=== PATIENT | male | born 1990 | race American Indian/Alaskan Native ===

== ENCOUNTER 2021-03-26 23:37 | Emergency (ER) | payer OTHER ==
[2021-03-27 00:33] VITALS: BP 134/94
[2021-03-27] MEDS ORDERED: LIDOCAINE (1%) 10 MG/1 ML VIAL 20 ML MDV INFILTRATI ONE (00:37)
[2021-03-27] MEDS ORDERED: IBUPROFEN 800 MG TAB PO ONE (00:37)
--- NOTE | 2021-03-27 01:12 | Emergency Department Report ---
ED General Adult HPI - General Chief complaint: Skin/Abscess/Foreign Body Stated complaint: PAINFUL BILATERAL FACIAL SWELLING Source: patient Mode of arrival: Ambulatory Limitations: No Limitations - History of Present Illness Initial comments: Patient is a 30-year-old -British male with no past medical history presents to the ED with complaint of acute onset persistent severe painful swollen rashes on bilateral preauricular areas for the last 4 days. Patient states that the swelling and pain have especially worsened in the last 24 hours. Patient also states that he has been trying to drain this rashes himself about 3 days ago when they started getting worse. Patient denies fever, chills, headache, nausea and vomiting, dizziness, syncope, neck pain, back pain, traumatic injury, chest pain or shortness of breath. MD Complaint: bilateral facial swollen painful rashes -: Sudden, days(s) (4) Location: face Radiation: non-radiation Severity scale (0 -10): 5 Quality: aching, sharp Consistency: constant Improves with: none Worsens with: none Associated Symptoms: denies other symptoms, rash (Swollen, painful maculopapular rashes on bilateral preauricular areas). denies: confusion, chest pain, cough, diaphoresis, fever/chills, headaches, loss of appetite, malaise, nausea/vomiting, seizure, shortness of breath, syncope, weakness Treatments Prior to Arrival: none - Related Data Previous Rx's Medication Instructions Recorded Last Taken Type Ibuprofen [Motrin] 800 mg PO Q8HR PRN #30 tablet 03/27/21 Unknown Rx Sulfamethoxazole/Trimethoprim 1 each PO Q12H #20 tablet 03/27/21 Unknown Rx [Bactrim DS TAB] Allergies Allergy/AdvReac Type Severity Reaction Status Date / Time No Known Allergies Allergy Unverified 03/27/21 00:34 ED Review of Systems ROS: Stated complaint: PAINFUL BILATERAL FACIAL SWELLING Other details as noted in HPI Constitutional: denies: chills, fever Eyes: denies: eye pain, eye discharge, vision change ENT: other (Swollen, painful bilateral preauricular rashes). denies: ear pain, throat pain Respiratory: denies: cough, shortness of breath, wheezing Cardiovascular: denies: chest pain, palpitations Endocrine: no symptoms reported Gastrointestinal: denies: abdominal pain, nausea, diarrhea Genitourinary: denies: urgency, dysuria Musculoskeletal: denies: back pain, joint swelling, arthralgia Skin: rash (Swollen, painful bilateral preauricular rashes). denies: lesions Neurological: denies: headache, weakness, paresthesias Psychiatric: denies: anxiety, depression Hematological/Lymphatic: denies: easy bleeding, easy bruising ED Past Medical Hx - Medications Home Medications: Home Medications Medication Instructions Recorded Confirmed Last Taken Type Ibuprofen [Motrin] 800 mg PO Q8HR PRN #30 tablet 03/27/21 Unknown Rx Sulfamethoxazole/Trimethoprim 1 each PO Q12H #20 tablet 03/27/21 Unknown Rx [Bactrim DS TAB] ED Physical Exam - General Limitations: No Limitations General appearance: alert, in no apparent distress - Head Head exam: Present: atraumatic, normocephalic, normal inspection - Eye Eye exam: Present: normal appearance, PERRL, EOMI Pupils: Present: normal accommodation - ENT ENT exam: Present: normal orophraynx, mucous membranes moist, other (Palpable fluctuant severely tender bilateral maculopapular rashes on bilateral preauricular areas) - Neck Neck exam: Present: normal inspection, full ROM - Respiratory Respiratory exam: Present: normal lung sounds bilaterally. Absent: respiratory distress, wheezes, rales, rhonchi, chest wall tenderness, accessory muscle use, decreased breath sounds, prolonged expiratory - Cardiovascular Cardiovascular Exam: Present: regular rate, normal rhythm, normal heart sounds. Absent: systolic murmur, diastolic murmur, rubs, gallop - GI/Abdominal GI/Abdominal exam: Present: soft, normal bowel sounds. Absent: tenderness, guarding, hyperactive bowel sounds, hypoactive bowel sounds, organomegaly - Extremities Exam Extremities exam: Present: normal inspection, full ROM, normal capillary refill - Back Exam Back exam: Present: normal inspection, full ROM. Absent: tenderness, CVA tenderness (R), CVA tenderness (L), muscle spasm, paraspinal tenderness, vertebral tenderness - Neurological Exam Neurological exam: Present: alert, oriented X3, CN II-XII intact, normal gait, reflexes normal - Psychiatric Psychiatric exam: Present: normal affect, normal mood - Skin Skin exam: Present: warm, dry, intact, normal color, rash (Swollen, fluctuant, severely tender maculopapular rashes on bilateral preauricular areas of the face) ED Course Vital Signs 03/27/21 00:08 Temperature 98.6 F Pulse Rate 89 Respiratory 18 Rate Blood Pressure 134/94 O2 Sat by Pulse 95 Oximetry - I & D Right Ear Type of Procedure: Simple Site: Right preauricular area Blade Size: 11 I & D Procedure: betadine prep, sterile drapes applied, sterile dressing applied, gauze wick placed Progress: The area was cleaned extensively with Betadine solution and normal saline. Local anesthetic lidocaine 1% solution was injected around the abscess and when anesthesia was fully achieved, the area was incised and thick purulent discharge mixed with blood drained from the wound. The wound was then extensively cleaned with normal saline and dressed appropriately. Patient tolerated procedure well. Left Face Type of Procedure: Simple Site: Left preauricular area Blade Size: 11 I & D Procedure: betadine prep, sterile drapes applied, sterile dressing applied, gauze wick placed Progress: The area was cleaned extensively with Betadine solution and normal saline. Local anesthetic lidocaine 1% solution was injected around the abscess and when anesthesia was fully achieved, the area was incised and thick purulent discharge mixed with blood drained from the wound. The wound was then extensively cleaned with normal saline and dressed appropriately. Patient tolerated procedure well. ED Medical Decision Making - Medical Decision Making This is a 30-year-old -British male with no past medical history presents to the ED with complaint of acute onset persistent severe painful swollen rashes on bilateral preauricular areas for the last 4 days. Patient states that the swelling and pain have especially worsened in the last 24 hours. Patient also states that he has been trying to drain this rashes himself about 3 days ago when they started getting worse. In the ED, patient is alert and oriented x3 and is not in any distress. Patient was treated for pain in the ED and the abscesses were drained per protocol after sanitizing the area with normal saline and Betadine solutions. The wound was then drained and cleaned extensively and dressed appropriately. Patient tolerated procedure well. Patient was discharged home on pain medications and oral antibiotics and advised to follow-up with his primary care physician in 7 to 10 days for reevaluation. Patient was advised return to the ED immediately if symptoms get worse. - Differential Diagnosis Cellulitis; folliculitis; cutaneous abscess Critical care attestation.: If time is entered above; I have spent that time in minutes in the direct care of this critically ill patient, excluding procedure time. ED Disposition Clinical Impression: Cellulitis and abscess of face, Acute folliculitis Disposition: HOME / SELF CARE / HOMELESS Is pt being admited?: No Does the pt Need Aspirin: No Condition: Stable Instructions: Skin Abscess, [id number], Cellulitis, Adult, [id number], Incision and Drainage, Care After Additional Instructions: Take medication with food, drink plenty of fluids and follow-up with your primary care physician in 7 to 10 days for reevaluation. Return to the ED immediately if symptoms get worse. Prescriptions: Sulfamethoxazole/Trimethoprim [Bactrim DS TAB] 1 each PO Q12H #20 tablet Ibuprofen [Motrin] 800 mg PO Q8HR PRN #30 tablet PRN Reason: Pain , Severe (7-10) Referrals: [facility] [Provider Group] - 3-5 Days Time of Disposition: 01:12 Print Language: OCCITAN
== END 2021-03-27 03:08 | disposition home or self-care (01) ==
LOC: ED 23:37
DX: L02.01 Cutaneous abscess of face (principal); L03.211 Cellulitis of face; L73.9 Follicular disorder, unspecified; Z79.899 Other long term (current) drug therapy
CPT/HCPCS: 99282

== ENCOUNTER 2021-11-15 21:43 | Emergency (ER) | payer SELFPAY ==
[2021-11-15 21:50] VITALS: BP 141/89
== END 2021-11-16 03:45 | disposition left against medical advice (07) ==
LOC: ED 21:43
DX: L72.0 Epidermal cyst (principal); Z53.21 Procedure and treatment not carried out due to patient leaving prior to being seen by health care provider